=== PATIENT | female | born 2005 | race Caucasian/White ===

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

== ENCOUNTER 2023-09-10 12:46 | Emergency (ER) | payer MEDICAID, SELFPAY ==
[2023-09-10 12:47] VITALS: BP 122/82; PULSE 109; RESP 20; TEMP 36.4; O2SAT 100; BMI 20.4
--- NOTE | 2023-09-10 12:52 | EDS_ITS ---
HPI History of Present Illness Chief Complaint: Syncope [facility] Medical History (Updated 09/10/23 @ 15:[address] Justin Mccabe, DO) Asthma Effusion, right knee Patellar tendinitis, right knee Home Medications albuterol sulfate 90 mcg/actuation aerosol inhaler 90 mcg inhalation 06/06/21
--- NOTE | 2023-09-10 12:52 | EX.ED.DYSGE1 ---
HPI History of Present Illness Chief Complaint: Syncope [facility] Medical History (Updated 09/10/23 @ 15:[address] Justin Mccabe, DO) Asthma Effusion, right knee Patellar tendinitis, right knee Home Medications albuterol sulfate 90 mcg/actuation aerosol inhaler 90 mcg inhalation 06/06/21 [History Last Taken Unknown] ibuprofen 200 mg capsule 200 mg PO Q6H PRN 07/28/23 [History Last Taken Unknown] lisdexamfetamine 20 mg capsule (Vyvanse) mg PO 09/07/23 [History Last Taken Unknown] Allergy/AdvReac Type Severity Reaction Status Date / Time amoxicillin AdvReac Mild Rash Verified 09/10/23 12:47 Social History household members: family Smoking Status: Never smoker substance use type: does not use what type of physical activity do you participate in: running and weight training EXAM Physical Exam Const Vital Signs: 09/10/23 12:47 09/10/23 13:43 Temperature 97.6 F L Temperature Source Temporal Pulse Rate 109 H Respiratory Rate 20 H Blood Pressure 122/82 H Blood Pressure Mean 95 Pulse Ox 100 Oxygen Delivery Method Room Air MDM MDM MDM Narrative Medical decision making narrative: HISTORY OF PRESENT ILLNESS: 17-year-old female here with concern for syncope. Notes her heart was racing. States she had an episode prior to arrival where she thought she may have passed out however her teacher thought she was sleeping on her desk. Patient notes they are reviewing adrenal anatomy which reminded her of her grandfather who of adrenal cancer. She states he had very emotional felt lightheaded, warm, dizzy had chest tightness and then transient loss consciousness. She denies any tongue biting, bowel or bladder incontinence. No history of seizures. No family history of early cardiac before the age of 50. She has a history of ADHD for which she takes Vyvanse. Notes she recently increased her dose over last 2 days per her doctor's recommendations. States she does drink energy drinks. She denies any drug use. Patient denies sudden onset or thunderclap headache, denies maximal intensity within 1 minute, vomiting, neck pain, stiffness, changes in vision, fever, history malignancy, syncope, or seizures associated with headache. She denies any abdominal pain. Notes she is on her period currently. She does not believe she is . REVIEW OF SYSTEMS: Pertinent positives: Syncope, palpitations Pertinent negatives: Headache, abdominal pain, chest pain, SOB, Leg swelling PHYSICAL EXAM: Nursing triage notes reviewed, Vital signs reviewed Constitutional: please see mdm HENT: MMM Eyes: Pupils equal round and reactive to light, Extraocular muscles intact Neck: No stridor, no JVD, full neck ROM Lungs: Clear to auscultation, No wheezing or rales. No increased work of breathing, no conversational dyspnea, no accessory muscle use, no nasal flaring. No respiratory distress noted Heart: Regular rate and rhythm, No murmurs, No rubs and No gallops, 2+ distal pulses (radial, femoral, posterior tibial) in all extremities Abdomen: Soft, there is no tenderness, rigidity, rebound or guarding, no obvious peritoneal signs, no palpable pulsatile abdominal masses, no auscultated abdominal bruit : No CVAT Extremities: No edema Neuro: No focal neurological deficits, cranial nerves II through XII intact, 5/5 strength in all extremities. Intact sensation to light touch in all extremities, 2+ reflexes bilateral patella tendons. Normal gait. No ataxia. Skin: No rash or lesions noted MEDICAL DECISION MAKING: Chief Complaint: Syncope, palpitations External records reviewed: No recent ED visits, no recent cardiac catheterizations, stress test or echocardiograms noted in the chart Factors affecting care: Asthma Social determinants of health: n denies illicit drugs History obtained from others: The patient's grandmother Consults: [facility] Narrative: Patient was hemodynamically stable, afebrile, nontoxic-appearing. No focal neurologic deficits. Abdomen soft nontender. No focal cardiopulmonary normalities I considered the following differential diagnosis: Subarachnoid hemorrhage, PE, aortic dissection, arrhythmia, anemia, , vasovagal syncope I considered intracranial normality without this is less likely given the patient's lack of headache, no focal neurologic deficits. History is not consistent with seizure as there is no shaking, tongue biting, bowel or bladder incontinence and no prolonged postictal period. there is no abdominal pain or concern for to suggest ectopic or AAA at this time. The patient low risk Wells score and as such I have a low suspicion for pulmonary embolism. Did obtain labs and further images to assess signs of pneumothorax, pneumonia, anemia, electrolyte disturbances, ACS, Patient was treated 1 L normal saline. ALL IMAGES (IF OBTAINED) HAVE BEEN PERSONALLY REVIEWED AND INTERPRETED BY MYSELF. CBC without leukocytosis, severe anemia, no thrombocytopenia. BMP without evidence of significant electrolyte abnormalities, no anion gap, no acute kidney injury. High-sensitivity troponin is negative, no evidence of myocardial ischemia EKG with normal sinus rhythm, normal axis, normal intervals, no ST or T wave changes to suggest ischemia. No evidence of WPW, Brugada, ARVD. I have personally reviewed the patient's chest x-ray. Chest x-ray is unremarkable for pulmonary edema, pneumothorax, pneumonia or focal cardiopulmonary abnormality. The patient and/or family, caregivers express understanding. The patient and/or family, caregivers agrees with the plan. Shared decision making: I will have a discussion with the patient and or visitors regarding risk/benefits of further testing or admission. They will be made aware of of the risk/benefits inherent in this decision they will be given the opportunity to voice understanding. Total critical care time today provided was at least 0 minutes. This excludes separately billable procedures. Critical care time (if documented) is secondary to the patient having high probability of clinically significant/life threatening deterioration in the patient's condition which required my urgent intervention. Impression: 1. Vasovagal syncope Dispo: Discharge Lab Data Labs: Laboratory Results - last 24 hr 09/10/23 13:40 WBC 8.0 RBC 4.89 Hgb 14.5 Hct 43.2 MCV 88.3 MCH 29.7 MCHC 33.6 RDW Std Deviation 42.3 RDW Coeff of Araceli 13.0 Plt Count 327 MPV 9.3 Immature Gran % (Auto) 0.400 Neut % (Auto) 69.9 Lymph % (Auto) 21.1 [place] % (Auto) 7.3 Eos % (Auto) 0.9 Baso % (Auto) 0.4 Absolute Neuts (auto) 5.6 Absolute Lymphs (auto) 1.68 Nucleated RBC % 0 Sodium 138 Potassium 4.1 Chloride 106 Carbon Dioxide 25.0 Anion Gap 7 BUN 15 Creatinine 0.83 Estim Creat Clear Calc 114.29 Est GFR (MDRD) Af Amer 113 Est GFR (MDRD) Non-Af 93 BUN/Creatinine Ratio 18.0 Glucose 92 Calcium 9.8 Troponin I High Sens 4 Radiography Diagnostic Testing: Clinical Impression(s) from Imaging Studies Chest X-Ray 09/10/23 13:13 IMPRESSION: Normal x-ray examination of the chest. Electronically Signed: Gavin Escalante MD at 14:31 EST , Discharge Plan Triage Chief Complaint: Syncope ED Provider: Justin Mccabe Dx/Rx/DC Orders Clinical Impression: Vaso vagal episode Instructions: ED Fainting, Vagal Reaction Prescriptions: No Action albuterol sulfate 90 mcg/actuation HFA aerosol inhaler 90 mcg inhalation ibuprofen 200 mg capsule 200 mg PO Q6H PRN lisdexamfetamine [Vyvanse] 20 mg capsule PO Primary Care Provider: Miranda Redmond Referrals: Miranda Redmond MD [Primary Care Provider] - Activity Restrictions/Additional Instructions: Thank you for trusting us with your care today! Please take Tylenol (2 pills, 650 mg), ibuprofen (2 pills, 400 mg) every 6 hours as needed for pain and fever control. Please return to the emergency department if your symptoms change or worsen. Please follow with your primary care physician for further outpatient evaluation and management. Disposition Disposition: Home, Self Care
--- NOTE | 2023-09-10 13:13 | RAD_ITS ---
STUDY: X-RAY CHEST REASON FOR EXAM: Female, 17 years old. chest pain TECHNIQUE: Single AP portable view of the chest. COMPARISON: None. FINDINGS: EKG electrodes are seen. The lungs are clear and expanded. There is no demonstrated pleural abnormality. Normal size heart. Normal mediastinum and julieta. Normal visualized pulmonary arteries. Normal visualized aortic arch and descending thoracic aorta. Normal visualized thoracic spine. Normal visualized ribs, clavicles, and shoulders. There is no demonstrated abnormality of the visualized soft tissue structures of the upper abdomen. RAD/Chest 1 View (Portable) IMPRESSION: Normal x-ray examination of the chest. Electronically Signed: Gavin Escalante MD at 14:31 EST ,
--- NOTE | 2023-09-10 13:17 | ED.RN ---
NO OLD EKG
[2023-09-10] MEDS: 0.9% Normal Saline (1000mL) 1,000 ML 1000 ML IV (13:45)
[2023-09-10 13:51] LABS: Absolute Lymphocyte Count 1.68 X10^3/uL (0.83-4.51); Absolute Neutrophil Count 5.6 X10^3/uL (2.0-7.7); Basophil# 0.03 X10^3/uL; Basophil% 0.4 % (0-1); Eosinophil# 0.07 X10^3/uL; Eosinophils% 0.9 % (0-5); Hematocrit 43.2 % (37-47); Hemoglobin 14.5 g/dL (12.0-15.0); Lymphocyte # 1.68 X10^3/ul (0.83-4.51); Lymphocyte % 21.1 % (19-41); Mean Corp Hgb Conc 33.6 g/dL (32-36); Mean Corpuscular Hgb 29.7 pg (27.0-32.0); Mean Corpuscular Volume 88.3 fL (81-99); Mean Platelet Vol. 9.3 fl (6.2-12.0); Monocyte# 0.58 X10^3/uL; Monocyte% 7.3 % (0-10); NRBC Flagged by Analyzer 0 % (0-5); Neutrophil # 5.58 X10^3/uL (2.7-7.7); Neutrophil % 69.9 % (47-70); Platelet Count 327 K/mm3 (150-450); RBC Distribution Width SD 42.3 fl (35.1-43.9); Red Blood Count 4.89 M/mm3 (4.2-5.4)
[2023-09-10 14:10] LABS: Anion Gap 7 (5-15); BUN 15 mg/dL (7-18); Calcium,Total 9.8 mg/dL (8.5-10.1); Chloride 106 mmol/L (98-107); Creatinine, Serum 0.83 mg/dL (0.55-1.02); EST Glomerular Filtration Rate 93 mL/min (>60); Est Glom Filt Rate - Afr Amer 113 mL/min (>60); Estimated Creatinine Clearance 114.29 ml/min; Glucose 92 mg/dL (74-106); Potassium 4.1 mmol/L (3.5-5.1); Sodium Level 138 mmol/L (136-145); Troponin-I HS 4 pg/mL (3.0-54.0); Troponin-I HS (w/2H Reflex) 4 pg/mL (3.0-54.0)
[2023-09-10 15:47] LABS: Reflex Troponin-HS? (from REC) Y
[2023-09-10 16:00] VITALS: BP 131/68; PULSE 74; RESP 12; O2SAT 99
[2023-09-10 16:09] LABS: Internal QC Validated? YES +Cl - CLEAR BKGD; Pregnancy, Urine Negative Negative; Record Kit Lot#,Urine Preg 718086
[2023-09-10 16:15] LABS: Troponin-I HS 3 pg/mL (3.0-54.0)
== END 2023-09-10 16:28 | disposition home or self-care (01) ==
PROVIDERS: Emergency Provider Emergency Medicine; PCP Pediatrics; Visit Provider Emergency Medicine
DX: R55 Syncope and collapse (principal); F90.9 Attention-deficit hyperactivity disorder, unspecified type; Z79.899 Other long term (current) drug therapy
CPT/HCPCS: 71045; 80048; 81025; 84484; 85025; 93005; 96360; 96361; 99284; J7030; A4216

== ENCOUNTER 2023-11-16 20:15 | Emergency (ER) | payer MEDICAID, SELFPAY ==
[2023-11-16 20:16] VITALS: BP 126/77; PULSE 174; RESP 24; TEMP 36.6; O2SAT 100; BMI 20.9
--- NOTE | 2023-11-16 20:22 | EKG12_ITS ---
Test Reason : CHEST PRESSURE Blood Pressure : / mmHG Vent. Rate : 131 BPM Atrial Rate : 131 BPM P-R Int : 134 ms QRS Dur : 068 ms QT Int : 294 ms P-R-T Axes : 065 061 047 degrees QTc Int : 434 ms Sinus tachycardia Otherwise normal ECG Confirmed by Perico Rebolledo ([id number]), commercial production editor KATIE HORVATH ([id number]) on 11/17/2023 10:06:40 AM Referred By: CACHORRO Confirmed By:Perico Rebolledo
[2023-11-16 21:03] LABS: Absolute Lymphocyte Count 0.49 X10^3/uL (0.83-4.51); Absolute Neutrophil Count 4.5 X10^3/uL (2.0-7.7); Basophil# 0.01 X10^3/uL; Basophil% 0.2 % (0-1); Eosinophil# 0.12 X10^3/uL; Hematocrit 43.2 % (37-47); Hemoglobin 14.8 g/dL (12.0-15.0); Lymphocyte # 0.49 X10^3/ul (0.83-4.51); Mean Corp Hgb Conc 34.3 g/dL (32-36); Mean Corpuscular Volume 87.6 fL (81-99); Mean Platelet Vol. 9.4 fl (6.2-12.0); Monocyte# 0.99 X10^3/uL; Monocyte% 16.2 % (0-10); NRBC Flagged by Analyzer 0 % (0-5); Neutrophil # 4.48 X10^3/uL (2.7-7.7); Neutrophil % 73.4 % (47-70); POSITIVE DIFFERENTIAL YES; Platelet Count 276 K/mm3 (150-450); RBC Distribution Width CV 12.1 % (11.6-14.6); RBC Distribution Width SD 39.2 fl (35.1-43.9); Red Blood Count 4.93 M/mm3 (4.2-5.4); White Blood Count 6.1 K/mm3 (4.4-11.0)
--- NOTE | 2023-11-16 21:03 | RAD_ITS ---
INDICATION: chest pain EXAMINATION/TECHNIQUE: X-RAY - portable upright AP chest x-ray COMPARISON: 09/10/2023 FINDINGS: LINES/DEVICES: None. LUNGS: No consolidation, edema or effusion. No pneumothorax. MEDIASTINUM AND CARDIOVASCULAR STRUCTURES: Cardiac silhouette not enlarged. Central airways and mediastinal contour are unremarkable. BONES AND SOFT TISSUES: Unremarkable. RAD/Chest 1 View (Portable) IMPRESSION: No radiographic evidence of acute cardiopulmonary disease. Electronically Signed: Tyrel Farrell MD at 21:20 EDT ,
[2023-11-16] MEDS: 0.9% Normal Saline (1000mL) 1,000 ML 999 ML IV ×2 (21:14→21:59)
[2023-11-16 21:24] LABS: Anion Gap 11 (5-15); BUN 9 mg/dL (7-18); BUN/Creat Ratio 8.8 RATIO (10-20); Calcium,Total 9.7 mg/dL (8.5-10.1); Chloride 106 mmol/L (98-107); Creatinine, Serum 1.02 mg/dL (0.55-1.02); EST Glomerular Filtration Rate 74 mL/min (>60); Est Glom Filt Rate - Afr Amer 89 mL/min (>60); Estimated Creatinine Clearance 95.29 ml/min; Glucose 101 mg/dL (74-106); Potassium 3.6 mmol/L (3.5-5.1); Sodium Level 137 mmol/L (136-145); Troponin-I HS (w/2H Reflex) < 3 pg/mL (3.0-54.0)
--- NOTE | 2023-11-16 21:26 | ED.VIS.CHEST ---
HPI History of Present Illness Chief Complaint: Palpitations Narrative Narrative: 17-year-old female presenting with chest pain. She states this started about 11 AM this morning. It has been constant but waxes and wanes in severity. She describes it as a pressure-like pain that radiates to her back. She states it is just left of the midline of the sternum. Denies fever, chills. Denies cough. She has mild shortness of breath. Patient states she has a history of anxiety but does not feel like she is anxious. Patient is currently on omeprazole for GERD. She is on Effexor which is new over the last week and she has been on Vyvanse for a long time. Patient denies cardiac history. She states he has a history of asthma but does not feel as if she is wheezing. She states her heart rate typically runs between 70 and 120 bpm. No history of DVT/PE but does have Nexplanon for control. PE Risk Factors: Negative for Recent Travel/Surgery, Recent Immobilization, Prior DVT or PE or Cancer [facility] Medical History (Updated 09/18/23 @ 00:12 by Cordell Hazel) Asthma Effusion, right knee Patellar tendinitis, right knee Home Medications albuterol sulfate 90 mcg/actuation aerosol inhaler 90 mcg inhalation 06/06/21 [History Last Taken Unknown] ibuprofen 200 mg capsule 200 mg PO Q6H PRN 07/28/23 [History Last Taken Unknown] lisdexamfetamine 20 mg capsule (Vyvanse) mg PO 09/07/23 [History Last Taken Unknown] Allergy/AdvReac Type Severity Reaction Status Date / Time amoxicillin AdvReac Mild Rash Verified 11/16/23 20:16 Social History household members: family Smoking Status: Never smoker substance use type: does not use what type of physical activity do you participate in: running and weight training EXAM Physical Exam Const Vital Signs: 11/16/23 20:16 11/16/23 21:44 11/16/23 21:44 Temperature 97.8 F Temperature Source Temporal Pulse Rate 174 H 99 Respiratory Rate 24 H 18 Respiratory Effort Blood Pressure 126/77 H 113/63 Blood Pressure Mean 93 79 Pulse Ox 100 100 100 Oxygen Delivery Method Room Air Room Air 11/16/23 22:02 11/16/23 22:03 11/16/23 23:05 Temperature 98.2 F Temperature Source Oral Pulse Rate 98 113 H Respiratory Rate 15 16 Respiratory Effort Normal Non-Labored Blood Pressure 107/70 99/51 L Blood Pressure Mean 82 67 Pulse Ox 99 98 Oxygen Delivery Method Room Air Room Air 11/16/23 23:05 Temperature 98.2 F Temperature Source Pulse Rate 113 H Respiratory Rate 16 Respiratory Effort Blood Pressure 99/51 L Blood Pressure Mean 67 Pulse Ox 99 Oxygen Delivery Method Positive well nourished Constitutional Narrative: Anxious appearing General Appearance ED: NAD HEENT Reports moist mucous membranes normocephalic and atraumatic Eyes PERRL Chest Wall inspection of chest normal Resp normal respiratory effort and clear to auscultation bilaterally Auscultation: Negative for rales, rhonchi or wheezes Cardio regular rhythm Rate: tachycardic GI normal to inspection, nondistended, normoactive bowel sounds Neuro oriented x3 and CN's II-XII intact bilaterally Sensorium / Orientation: awake and alert Motor Exam: strength 5/5 throughout Psych mental status grossly normal Mood & Affect: anxious MDM MDM MDM Narrative Medical decision making narrative: Patient presenting with chest pain and tachycardia. Chest pain started at 11 AM. She reports that her heart started to race at about 4 PM. Patient with no history of DVT/PE. She only has risk factors secondary to Nexplanon for control. No history of cardiac disease. Differential includes but is not limited to ACS, PE, aortic dissection, pneumonia, pneumothorax, muscle strain, costochondritis, dehydration, anemia, electrolyte maladies, anxiety. CBC will be obtained to assess white blood cell count, hemoglobin, platelets. BMP to assess renal function, electrolytes, glucose, anion gap. High-sensitivity troponin EKG to assess for ischemia/dysrhythmia. Chest x-ray to rule out pneumonia. IV line was established on arrival. 2 L of normal saline were given. Patient states that she wants something for pain but does not want narcotics she was given Toradol and Zofran for nausea. EKG on my interpretation shows a sinus tachycardia at 131 bpm without sign of ischemic change. Chest x-ray my interpretation shows no acute cardiopulmonary process. Radiologist interprets this and agrees. High-sensitivity troponin is less than 3. This is after greater than 10 hours of pain so I do not believe she did delta troponin. Awaiting D-dimer. D-dimer returned negative. Repeat evaluation her heart rate is now in the 70s. Blood pressure 99/51. Respirate 16, 99% on room air. She feels much better. Patient only treated with Zofran and Toradol. We discussed follow-up and I recommended follow-up with cardiology. She may in fact need a Holter monitor. I feel she stable for discharge. All questions were answered. Impression: 1. Chest pain 2. Tachycardia Lab Data Attestation: I reviewed the patient's lab results. Labs: Laboratory Results - last 24 hr 11/16/23 20:45 WBC 6.1 RBC 4.93 Hgb 14.8 Hct 43.2 MCV 87.6 MCH 30.0 MCHC 34.3 RDW Std Deviation 39.2 RDW Coeff of Araceli 12.1 Plt Count 276 MPV 9.4 Immature Gran % (Auto) 0.200 Neut % (Auto) 73.4 H Lymph % (Auto) 8.0 L [place] % (Auto) 16.2 H Eos % (Auto) 2.0 Baso % (Auto) 0.2 Absolute Neuts (auto) 4.5 Absolute Lymphs (auto) 0.49 L Nucleated RBC % 0 D-Dimer Quant (PE/DVT) 0.41 Sodium 137 Potassium 3.6 Chloride 106 Carbon Dioxide 20.0 L Anion Gap 11 BUN 9 Creatinine 1.02 Estim Creat Clear Calc 95.29 Est GFR (MDRD) Af Amer 89 Est GFR (MDRD) Non-Af 74 BUN/Creatinine Ratio 8.8 L Glucose 101 Calcium 9.7 Troponin I High Sens < 3 L Radiography Diagnostic Testing: Clinical Impression(s) from Imaging Studies Chest X-Ray 11/16/23 21:03 IMPRESSION: No radiographic evidence of acute cardiopulmonary disease. Electronically Signed: Tyrel Farrell MD at 21:20 EDT Reading Location ID and State: [facility] / [place] Tel , Service support , Discharge Plan Triage Chief Complaint: Palpitations Other Complaint: Numb/Ting ED Provider: Case Priest Dx/Rx/DC Orders Instructions: ED Palpitations, ED Tachycardia: PAT Prescriptions: No Action albuterol sulfate 90 mcg/actuation HFA aerosol inhaler 90 mcg inhalation ibuprofen 200 mg capsule 200 mg PO Q6H PRN lisdexamfetamine [Vyvanse] 20 mg capsule PO Primary Care Provider: Miranda Redmond Referrals: Perico Rebolledo MD [Med Staff - Active Staff] - As soon as possible Miranda Redmond MD [Primary Care Provider] - Disposition Disposition: Home, Self Care
[2023-11-16 21:40] LABS: D-Dimer Quantitative (DVT/PE) 0.41 FEU/ug/m (0.27-0.49)
[2023-11-16 21:44] VITALS: BP 113/63; PULSE 99; RESP 18; O2SAT 100
[2023-11-16] MEDS: Ondansetron 4 MG/2 ML Vial IV (22:00)
[2023-11-16] MEDS: Ketorolac 15 MG/ML Vial IV (22:00)
[2023-11-16 22:02] VITALS: BP 107/70; PULSE 98; RESP 15; TEMP 36.8; O2SAT 99
[2023-11-16 22:57] LABS: Reflex Troponin-HS? (from REC) Y
[2023-11-16 23:05] VITALS: BP 99/51; PULSE 113; RESP 16; TEMP 36.8; O2SAT 98; O2SAT 99
== END 2023-11-16 23:25 | disposition home or self-care (01) ==
PROVIDERS: Emergency Provider Student in an Organized Health Care Education/Training Program; PCP Pediatrics; Visit Provider Student in an Organized Health Care Education/Training Program
DX: R07.9 Chest pain, unspecified (principal); R00.0 Tachycardia, unspecified; K21.9 Gastro-esophageal reflux disease without esophagitis; Z79.899 Other long term (current) drug therapy; F41.9 Anxiety disorder, unspecified; R11.0 Nausea
CPT/HCPCS: 71045; 80048; 84484; 85025; 85379; 93005; 96361; 96374; 96375; 99285; J7030; J2405

== ENCOUNTER 2024-02-13 21:13 | Emergency (ER) | payer SELFPAY ==
[2024-02-13 21:14] VITALS: BP 130/82; PULSE 73; RESP 16; TEMP 36.1; O2SAT 100; BMI 22.5
--- NOTE | 2024-02-13 21:32 | EKG12_ITS ---
Test Reason : CP Blood Pressure : / mmHG Vent. Rate : 067 BPM Atrial Rate : 067 BPM P-R Int : 120 ms QRS Dur : 078 ms QT Int : 374 ms P-R-T Axes : 067 059 037 degrees QTc Int : 395 ms Normal sinus rhythm Normal ECG Confirmed by LAUREN VINES MD ([id number]), material expeditor OLEG KAUFMAN ([id number]) on 02/15/2024 8:06:12 AM Referred By: LORENZO Confirmed By:LAUREN VINES MD
--- NOTE | 2024-02-13 21:37 | EDS_ITS ---
HPI <JENNIE Baugh - Last Filed: 02/13/24 21:52> History of Present Illness Chief Complaint: Chest Pain Narrative Narrative: Patient is a 18-year-old female with history of anxiety, history of tachycardia on metoprolol, POTS syndrome who presents to the emergency department for chest pressure. Patient she was working today, around 8 AM she noticed some pressure in the midsternal of her chest. Throughout the day, she states the pain was never severe however it did affect her. She was told that she did not look well during her job. They did do an EKG because she worked upstairs in the TCU unit, she was concerned about her T waves and she is here for evaluation. Her biggest concern is she is having a heart attack. She denies any sweating, denies any recent travel, denies any history of blood clots to the legs or lungs. [facility] <JENNIE Baugh - Last Filed: 02/13/24 21:52> [facility] Medical History (Updated 02/13/24 @ 21:51 by JENNIE Baugh) POTS (postural orthostatic tachycardia syndrome) Patellar tendinitis, right knee Effusion, right knee Asthma Home Medications ?Medication ?Instructions ?Recorded ?Last Taken ?Type albuterol sulfate 90 mcg/actuation 90 mcg inhalation 06/06/21 Unknown History aerosol inhaler lisdexamfetamine 20 mg capsule 30 mg PO DAILY 09/07/23 Unknown History (Angi) metoprolol succinate 25 mg 25 mg PO QPM 02/13/24 Unknown History tablet,extended release 24 hr Allergy/AdvReac Type Severity Reaction Status Date / Time amoxicillin AdvReac Mild Rash Verified 02/13/24 21:17 Social History household members: family Smoking Status: Never smoker substance use type: does not use what type of physical activity do you participate in: running and weight training ROS <JENNIE Baugh - Last Filed: 02/13/24 21:52> ROS ED ROS Narrative Constitutional: Negative for fever, chills, weight loss, weakness Eyes: Negative for vision loss, vision change, double vision ENT: Negative for any sore throat, ear pain, congestion Cardiovascular: Negative for any palpitations. Positive for chest pressure, tightness Respiratory: Negative for any cough, sputum production, hemoptysis, dyspnea, dyspnea on exertion, orthopnea Gastrointestinal: Negative for any abdominal pain, nausea, vomiting, diarrhea, constipation, blood in stool, blood in vomit : Negative for any urinary frequency, dysuria, retention, blood in urine Muscle skeletal: Negative for any neck pain, back pain Neurological: Negative for any headache, syncope, dizziness Skin: Negative for any rashes, itching, abrasions, lacerations Psychiatric: Negative for any depression, anxiety, stress, suicidal ideation, homicidal ideation Hematologic: Negative for any excessive bruising, easy bleeding EXAM <Mychal Zavala PHYSICIST [facility] - Last Filed: 02/13/24 21:52> Physical Exam Narrative Exam Narrative: Vital signs reviewed. HEET: Head normocephalic atraumatic, TMs clear bilaterally. Posterior pharynx is clear, moist mucous membranes. Nares clear bilaterally. Neck: Supple with no lymphadenopathy or tenderness. No signs of meningismus. Cardiac: Regular rate and rhythm no murmurs gallops or rubs, equal peripheral pulses bilaterally. Respiratory: Lungs clear to auscultation bilaterally. No chest tenderness. Abdomen: Soft, nontender, nondistended. No abdominal bruit or pulsatile masses. No hepatosplenomegaly Extremities: No peripheral edema, no signs of gross trauma or deformity. Active full range of motion of all extremities. Neuro: Cranial nerves II through XII intact, no focal neurological deficits. Skin: Clean dry and intact with no rash, purpura, petechiae, vesicles or pustules. Backs/flank: No CVA tenderness, no midline spinal tenderness, no deformity. Psych: Normal mood and affect. No SI, HI or acute psychosis. Const Vital Signs: 02/13/24 21:14 02/13/24 21:28 02/13/24 21:38 Temperature 96.9 F L Temperature Source Temporal Pulse Rate 73 Respiratory Rate 16 Respiratory Effort Normal Blood Pressure 130/82 H Blood Pressure Mean 98 Pulse Ox 100 Oxygen Delivery Method Room Air Room Air Positive well nourished and well developed General Appearance ED: well developed <Dr. Elier Franklin, DO - Last Filed: 02/13/24 22:15> Physical Exam Const Vital Signs: 02/13/24 21:14 02/13/24 21:28 02/13/24 21:38 Temperature 96.9 F L Temperature Source Temporal Pulse Rate 73 Respiratory Rate 16 Respiratory Effort Normal Blood Pressure 130/82 H Blood Pressure Mean 98 Pulse Ox 100 Oxygen Delivery Method Room Air Room Air [facility] <Mychal DangJENNIE kruger - Last Filed: 02/13/24 21:52> [facility] Lab Data Labs: Laboratory Results - last 24 hr 02/13/24 21:30 WBC 8.0 RBC 4.26 Hgb 12.9 Hct 37.4 MCV 87.8 MCH 30.3 MCHC 34.5 RDW Std Deviation 39.7 RDW Coeff of Araceli 12.3 Plt Count 282 MPV 9.4 Immature Gran % (Auto) 0.300 Neut % (Auto) 56.9 Lymph % (Auto) 28.1 [place] % (Auto) 8.1 Eos % (Auto) 6.2 H Baso % (Auto) 0.4 Absolute Neuts (auto) 4.5 Absolute Lymphs (auto) 2.23 Nucleated RBC % 0 Sodium 139 Potassium 3.7 Chloride 108 H Carbon Dioxide 25.0 Anion Gap 6 BUN 12 Creatinine 0.88 Estim Creat Clear Calc 110.27 Est GFR (MDRD) Af Amer 105 Est GFR (MDRD) Non-Af 86 BUN/Creatinine Ratio 13.6 Glucose 101 Calcium 9.4 Troponin I High Sens < 3 L TSH 1.29 EKG Normal sinus rhythm: Attestation: I personally reviewed and interpreted this EKG as follows: Comments: Normal sinus rhythm, rate of 67 bpm, FL 120 ms, QRS duration 78 ms, no acute ST elevation, no acute infarct noted. Treatment and Re-Evaluation :: Differential diagnosis includes however is not limited to: Anxiety, chest pain unknown etiology, ACS, [place], PE Patient appears to be in no obvious distress, vital signs are stable, patient is nontoxic-appearing. Patient presenting to the emergency department for chest pressure since 8 AM this morning. Patient states he is most concerned that something is wrong with her heart. Patient's EKG was normal, no evidence of any ACS or NJ, patient's PERC negative. Patient looks generally well. Patient will receive basic labs as well as a troponin, two-view chest x-ray. All radiologic examinations were read, reviewed by the emergency department attending. From these reads, a plan of care will be put in place. Patient received IV fluids. I will also order TSH. On reevaluation, the patient was in no distress. Patient's laboratory values were grossly normal. At this time, I do not believe there is any evidence of any cardiopulmonary pathology. Patient will continue to follow-up with her vest backer from [facility]. She instructed to maintain hydration. All questions were answered, she was given return precautions. Patient stable for discharge. <Dr. Elier Franklin, DO - Last Filed: 02/13/24 22:15> [facility] Narrative Medical decision making narrative: I have personally performed a face to face assessment of the patient and have reviewed the ABHISHEK Note. I performed a substantive portion of the visit including all aspects of the following. My [place] findings include: History: Patient presents with chest pain that began approximately 12 to 13 hours prior to arrival. Patient states it has been intermittent throughout the day. Patient states it came on gradually. Patient states it is over the substernal area and radiates to her left shoulder. Patient states it is worse with certain movements. Patient admits to some shortness of breath and diaphoresis with it. Patient admits to some lightheadedness and palpitations. Patient denies any cough or fever. Patient denies any nausea or vomiting. Patient has a history of POTS and unsustained V. tach. Exam: Vital signs are stable. Patient is afebrile. Patient is in no acute distress. Oral mucosa is pink and moist. Neck is supple. Trachea is midline. There is no JVD. Heart was regular rate and rhythm. Lungs are clear and equal bilaterally. There is good respiratory effort noted. Abdomen is soft. Bowel sounds are normal. There is no tenderness. Cranial nerves II through XII are intact. There are no focal motor or sensory deficits noted. Medical Decision Making: Differential diagnosis includes cardiac dysrhythmia, cardiac ischemia, electrolyte abnormality, pneumonia, pneumothorax, hypothyroidism, hyperthyroidism, and anxiety. EKG will be obtained to assess for cardiac dysrhythmia and cardiac ischemia. Chest x-ray will be obtained to assess for pneumonia and pneumothorax. CBC will be obtained to assess for leukocytosis and anemia. Basic metabolic profile will be obtained to assess for electrolyte abnormality and renal function. High-sensitivity troponin will be obtained to assess for cardiac ischemia. TSH will be obtained to assess for hypothyroidism and hyperthyroidism. Patient was given IV fluids. EKG was obtained. On my independent interpretation, shows normal sinus rhythm with a rate of 67. FL interval, QRS interval, and QTc intervals are within normal limits. [place] is normal. There are no acute ST or T wave changes noted. PA and lateral chest x-ray was obtained. There are 2 views. On my independent interpretation, lung healy are clear. There is normal cardiac silhouette. Bony thorax is normal. There is no acute process noted. Radiologist also interpreted the x-ray and agrees. CBC was reviewed and was within normal limits. Basic metabolic profile was reviewed and was within normal limits. High-sensitivity troponin was reviewed and was normal at less than 3. TSH was reviewed and was normal at 1.29. Patient was advised of her findings. Patient has a HEART score of 0. Patient was advised that this is low risk for acute cardiac event. Patient was instructed to follow-up with her primary care physician in 5 to 7 days. Patient understood and was agreeable with the plan. All questions were answered. Lab Data Labs: Laboratory Results - last 24 hr 02/13/24 21:30 WBC 8.0 RBC 4.26 Hgb 12.9 Hct 37.4 MCV 87.8 MCH 30.3 MCHC 34.5 RDW Std Deviation 39.7 RDW Coeff of Araceli 12.3 Plt Count 282 MPV 9.4 Immature Gran % (Auto) 0.300 Neut % (Auto) 56.9 Lymph % (Auto) 28.1 [place] % (Auto) 8.1 Eos % (Auto) 6.2 H Baso % (Auto) 0.4 Absolute Neuts (auto) 4.5 Absolute Lymphs (auto) 2.23 Nucleated RBC % 0 Sodium 139 Potassium 3.7 Chloride 108 H Carbon Dioxide 25.0 Anion Gap 6 BUN 12 Creatinine 0.88 Estim Creat Clear Calc 110.27 Est GFR (MDRD) Af Amer 105 Est GFR (MDRD) Non-Af 86 BUN/Creatinine Ratio 13.6 Glucose 101 Calcium 9.4 Troponin I High Sens < 3 L TSH 1.29 Discharge Plan Triage Chief Complaint: Chest Pain ED Midlevel Provider: Mychal Zavala ED Provider: Elier Franklin Dx/Rx/DC Orders Clinical Impression: Chest pressure, POTS (postural orthostatic tachycardia syndrome) Instructions: ED Chest Pain, Noncardiac, ED Chest Pain, Uncertain Cause Prescriptions: No Action albuterol sulfate 90 mcg/actuation HFA aerosol inhaler 90 mcg inhalation lisdexamfetamine [Vyvanse] 20 mg capsule 30 mg PO DAILY metoprolol succinate 25 mg tablet extended release 24 hr 25 mg PO QPM Primary Care Provider: Miranda Redmond Referrals: Pily Anderson NP-C [Non-Staff] - Activity Restrictions/Additional Instructions: Ensure that you take your medications as prescribed. You have a negative chest pain workup today. Print Language: Romanian Disposition Disposition: Home, Self Care
[2024-02-13] MEDS: 0.9% Normal Saline (1000mL) 1,000 ML 999 ML IV (21:38)
[2024-02-13 21:46] LABS: Absolute Lymphocyte Count 2.23 X10^3/uL (0.83-4.51); Absolute Neutrophil Count 4.5 X10^3/uL (2.0-7.7); Basophil# 0.03 X10^3/uL; Basophil% 0.4 % (0-1); Eosinophil# 0.49 X10^3/uL; Eosinophils% 6.2 % (0-5); Hematocrit 37.4 % (37-47); Hemoglobin 12.9 g/dL (12.0-15.0); Lymphocyte # 2.23 X10^3/ul (0.83-4.51); Lymphocyte % 28.1 % (19-41); Mean Corp Hgb Conc 34.5 g/dL (32-36); Mean Corpuscular Hgb 30.3 pg (27.0-32.0); Mean Corpuscular Volume 87.8 fL (81-99); Mean Platelet Vol. 9.4 fl (6.2-12.0); Monocyte# 0.64 X10^3/uL; Monocyte% 8.1 % (0-10); NRBC Flagged by Analyzer 0 % (0-5); Neutrophil # 4.54 X10^3/uL (2.7-7.7); Neutrophil % 56.9 % (47-70); Platelet Count 282 K/mm3 (150-450); RBC Distribution Width CV 12.3 % (11.6-14.6); RBC Distribution Width SD 39.7 fl (35.1-43.9); Red Blood Count 4.26 M/mm3 (4.2-5.4)
--- NOTE | 2024-02-13 21:50 | RAD_ITS ---
INDICATION: chest pain EXAMINATION/TECHNIQUE: X-RAY - XR Chest 2 Views COMPARISON: 11/16/2023 FINDINGS: LINES/DEVICES: None. LUNGS: No consolidation. No pneumothorax. MEDIASTINUM: Unremarkable. CARDIAC SILHOUETTE: Not enlarged. BONES AND SOFT TISSUES: No acute abnormalities. RAD/Chest PA and Lateral IMPRESSION: No evidence of active intrathoracic disease. Electronically Signed: Regi Ramon MD at 22:18 EDT ,
[2024-02-13 22:10] LABS: Anion Gap 6 (5-15); BUN 12 mg/dL (7-18); BUN/Creat Ratio 13.6 RATIO (10-20); Calcium,Total 9.4 mg/dL (8.5-10.1); Chloride 108 mmol/L (98-107); Creatinine, Serum 0.88 mg/dL (0.55-1.02); EST Glomerular Filtration Rate 86 mL/min (>60); Est Glom Filt Rate - Afr Amer 105 mL/min (>60); Estimated Creatinine Clearance 110.27 ml/min; Glucose 101 mg/dL (74-106); Potassium 3.7 mmol/L (3.5-5.1); Sodium Level 139 mmol/L (136-145); Thyroid Stim Hormone (TSH) 1.29 uIU/mL (0.358-3.74); Troponin-I HS < 3 pg/mL (3.0-54.0)
[2024-02-13 22:14] VITALS: BP 104/67; PULSE 58; RESP 14; O2SAT 100
[2024-02-13 22:23] VITALS: BP 104/67; PULSE 57; RESP 20; TEMP 36.8; O2SAT 99
== END 2024-02-13 22:24 | disposition home or self-care (01) ==
LOC: ED 22:11
PROVIDERS: Nurse Practitioner; Emergency Provider Emergency Medicine; PCP Pediatrics; Visit Provider Emergency Medicine
DX: R07.89 Other chest pain (principal); G90.A Postural orthostatic tachycardia syndrome [POTS]; R00.0 Tachycardia, unspecified; Z79.899 Other long term (current) drug therapy
CPT/HCPCS: 71046; 80048; 84443; 84484; 85025; 93005; 96360; 99283

== ENCOUNTER 2024-05-07 19:50 | Emergency (ER) | payer MEDICAID, SELFPAY ==
[2024-05-07 19:51] VITALS: BP 124/78; PULSE 91; RESP 16; TEMP 36.6; O2SAT 98; BMI 23.2
--- NOTE | 2024-05-07 20:14 | EX.ED.DYSGE1 ---
HPI History of Present Illness Chief Complaint: Cold Sx Detail of Chief Complaint: Nasal congestion x 2 days and epistaxis Informant: patient Onset/Context/Timing Onset: Days Context: Sudden Onset Timing: Continuous and Waxes and wanes Quality: Facial discomfort, nasal congestion, epistaxis left Location: Upper respiratory Current Severity: Mild Maximum Severity: Moderate Worsened by: . Nothing Relieved by: Nothing Associated Symptoms Associated Symptoms: Upper respiratory Narrative Narrative: Patient is a 18-year-old female. She has a history of POTS. She is presently on metoprolol 25 mg daily. She presents with nasal congestion that started 2 days ago. She had epistaxis from the left naris. She denies headache. She denies visual symptoms. She endorses change in voice. She denies cough or shortness of breath. She denies nausea, vomiting or diarrhea. She denies rash. Denies myalgias arthralgias. Prior similar symptoms: Yes Recent Illness/Hospitalization: No PFSH PFSH Medical History POTS (postural orthostatic tachycardia syndrome) Patellar tendinitis, right knee Effusion, right knee Asthma Home Medications ?Medication ?Instructions ?Recorded ?Last Taken ?Type albuterol sulfate 90 mcg/actuation 90 mcg inhalation 06/06/21 Unknown History aerosol inhaler lisdexamfetamine 20 mg capsule 30 mg PO DAILY 09/07/23 Unknown History (Angi) metoprolol succinate 25 mg 25 mg PO QPM 02/13/24 Unknown History tablet,extended release 24 hr Allergy/AdvReac Type Severity Reaction Status Date / Time amoxicillin AdvReac Mild Rash Verified 05/07/24 19:52 Social History household members: family Smoking Status: Never smoker substance use type: does not use what type of physical activity do you participate in: running and weight training ROS ROS ED Constitutional Constitutional ED: Denies chills, fever(s), subjective or sweats Eyes Eyes: Denies blurry vision or change in vision ENT ENT ED: Reports rhinorrhea; Denies ear pain or sore throat Cardiovascular Cardiovascular: Denies chest pain or palpitations Respiratory/Chest Respiratory/Chest: Denies cough, dyspnea or dyspnea on exertion Gastrointestinal Gastrointestinal: Denies nausea or vomiting Musculoskeletal Musculoskeletal: Denies arthralgias or myalgias Integumentary Denies rash Neurologic Neurologic: Denies headache(s) Hematologic/Lymphatic Hematologic/Lymphatic: Reports systems reviewed and no addt'l complaints, except as documented EXAM Physical Exam Const Vital Signs: 05/07/24 19:51 Temperature 97.8 F Temperature Source Temporal Pulse Rate 91 Respiratory Rate 16 Blood Pressure 124/78 H Blood Pressure Mean 93 Pulse Ox 98 Oxygen Delivery Method Room Air Positive well nourished and well developed General Appearance ED: well developed; Negative for cyanotic, diaphoretic, NAD or pallor HEENT Reports moist mucous membranes HEENT Narrative: There is no tenderness over the frontal, ethmoid or maxillary sinuses. Patient has cobblestoning of the nasal mucosa with irritation predominately on the left. There is slight clear drainage noted. Posterior pharynx is normal. Eyes PERRL and EOMs intact bilaterally General Eye ED: Negative for pale conjunctiva or scleral icterus Neck no lymphadenopathy, supple and no JVD Resp normal respiratory effort Cardio regular rate and regular rhythm Neuro oriented x3 and CN's II-XII intact bilaterally Sensorium / Orientation: alert Psych mental status grossly normal Skin no rashes or lesions noted, no wounds and skin turgor normal General Skin Exam: elasticity normal; Negative for jaundice or pallor MDM MDM MDM Narrative Medical decision making narrative: Patient has viral upper respiratory versus allergic rhinitis. Epistaxis most likely due to nasal irritation. Patient was informed she does not have a sinus infection since he only had symptoms for 2 days. This is most likely a viral illness since her nasal mucosae is not healy and boggy. The nasal mucosa is inflamed especially over the left septal region. Discharge Plan Triage Chief Complaint: Cold Sx ED Provider: Ismael Landa Dx/Rx/DC Orders Clinical Impression: Mild nasal congestion, Acute anterior epistaxis, Postural orthostatic tachycardia syndrome [POTS] Instructions: ED URI, Viral, No Abx (Adult) Prescriptions: No Action albuterol sulfate 90 mcg/actuation HFA aerosol inhaler 90 mcg inhalation lisdexamfetamine [Vyvanse] 20 mg capsule 30 mg PO DAILY metoprolol succinate 25 mg tablet extended release 24 hr 25 mg PO QPM Primary Care Provider: Miranda Redmond Referrals: Miranda Rdemond MD [Primary Care Provider] - 1 Week if not improving Activity Restrictions/Additional Instructions: 1. Use saline nasal spray as instructed on the bile 2. Would be beneficial to apply Vaseline ointment to the inside of your nose in the morning and at night. Also would be of benefit to use a humidifier Print Language: Turkish Disposition Disposition: Home, Self Care
== END 2024-05-07 20:31 | disposition home or self-care (01) ==
LOC: ED 20:26
PROVIDERS: Emergency Provider Emergency Medicine; PCP Pediatrics; Visit Provider Emergency Medicine
DX: R09.81 Nasal congestion (principal); R04.0 Epistaxis; G90.A Postural orthostatic tachycardia syndrome [POTS]; Z79.899 Other long term (current) drug therapy
CPT/HCPCS: 99282

== ENCOUNTER 2024-08-08 06:24 | Emergency (ER) | payer MEDICAID, SELFPAY ==
[2024-08-08 06:25] VITALS: BP 116/76; PULSE 111; RESP 16; TEMP 36.9; O2SAT 98; BMI 23.0
--- NOTE | 2024-08-08 06:41 | EKG12_ITS ---
Test Reason : SYNCOPE Blood Pressure : */* mmHG Vent. Rate : 106 BPM Atrial Rate : 106 BPM P-R Int : 126 ms QRS Dur : 76 ms QT Int : 328 ms P-R-T Axes : 70 47 32 degrees QTcB Int : 435 ms Sinus tachycardia Otherwise normal ECG Confirmed by MOHINDER GARCIA, LAUREN ([id number]), editorial specialist KATIE HORVATH ([id number]) on 08/11/2024 2:20:34 PM Referred By: Confirmed By: LAUREN VINES MD
[2024-08-08] MEDS: Ondansetron 4 MG/2 ML Vial IV (06:47)
[2024-08-08] MEDS: Famotidine 200 MG/20 ML MDV 20 MG in 0.9% Normal Saline (Pres. free 8 ML 300 MG IV (06:47)
[2024-08-08] MEDS: 0.9% Normal Saline (1000mL) 1,000 ML 1000 ML IV (06:47)
[2024-08-08 06:51] LABS: Basophil# 0.03 X10^3/uL; Basophil% 0.2 % (0-1); Eosinophil# 0.06 X10^3/uL; Eosinophils% 0.4 % (0-5); Hematocrit 41.1 % (37-47); Hemoglobin 14.2 g/dL (12.0-15.0); Lymphocyte % 2.1 % (19-41); Mean Corp Hgb Conc 34.5 g/dL (32-36); Mean Corpuscular Hgb 30.1 pg (27.0-32.0); Mean Corpuscular Volume 87.1 fL (81-99); Mean Platelet Vol. 9.3 fl (6.2-12.0); Monocyte# 0.83 X10^3/uL; Monocyte% 5.8 % (0-10); NRBC Flagged by Analyzer 0 % (0-5); Neutrophil # 12.99 X10^3/uL (2.7-7.7); Neutrophil % 90.8 % (47-70); POSITIVE DIFFERENTIAL YES; Platelet Count 240 K/mm3 (150-450); RBC Distribution Width CV 12.4 % (11.6-14.6); RBC Distribution Width SD 39.2 fl (35.1-43.9); Red Blood Count 4.72 M/mm3 (4.2-5.4); White Blood Count 14.3 K/mm3 (4.4-11.0)
--- NOTE | 2024-08-08 06:56 | EX.ED.DYSGE1 ---
HPI History of Present Illness Chief Complaint: Nausea/Vomiting/Diarrhea Informant: patient and parent Narrative Narrative: Patient presents with mother vomiting since 7 PM. No hematemesis. 1 diarrhea at 2 AM. During vomiting has had syncopal episodes. No chest pains. History of POTS syndrome. History of nonsustained V. tach on metoprolol followed by [facility] cardiology. Other family members also ate the same food around 7 PM abdominal planes. No other family sick. Last menstrual period 2 to 3 weeks ago. No urinary symptoms. Denies any abdominal surgery. Reports mid abdominal pain due to vomiting. [facility] Medical History POTS (postural orthostatic tachycardia syndrome) Patellar tendinitis, right knee Effusion, right knee Asthma Home Medications ?Medication ?Instructions ?Recorded ?Last Taken ?Type albuterol sulfate 90 mcg/actuation 90 mcg inhalation Q4H PRN 06/06/21 Unknown History aerosol inhaler lisdexamfetamine 20 mg capsule 20 mg PO DAILY 09/07/23 Unknown History (Vyvanse) metoprolol succinate 25 mg 25 mg PO QPM 02/13/24 Unknown History tablet,extended release 24 hr famotidine 20 mg tablet 20 mg PO BID #20 TABLETS 08/08/24 Unknown Rx ondansetron 4 mg disintegrating 4 mg PO Q8H PRN PRN Nausea #10 tabs 08/08/24 Unknown Rx tablet Allergy/AdvReac Type Severity Reaction Status Date / Time amoxicillin AdvReac Mild Rash Verified 08/08/24 06:24 Social History household members: family Smoking Status: Never smoker substance use type: does not use what type of physical activity do you participate in: running and weight training ROS ROS ED Constitutional Constitutional ED: Denies chills, fever(s) or sweats ENT ENT ED: Denies sore throat Cardiovascular Cardiovascular: Denies chest pain, leg edema, palpitations or racing heartbeat Respiratory/Chest Respiratory/Chest: Denies cough, dyspnea or dyspnea on exertion Gastrointestinal Gastrointestinal: Reports abdominal pain, diarrhea, nausea and vomiting Genitourinary Genitourinary ED: Denies dysuria, hematuria or urinary frequency Musculoskeletal Musculoskeletal: Denies back pain, extremity pain or neck pain Integumentary Denies rash or wounds Neurologic Neurologic: Denies headache(s), paresthesias or weakness EXAM Physical Exam Const Vital Signs: 08/08/24 06:25 Temperature 98.5 F Temperature Source Oral Pulse Rate 111 H Respiratory Rate 16 Blood Pressure 116/76 Blood Pressure Mean 89 Pulse Ox 98 Oxygen Delivery Method Room Air Positive well nourished and well developed General Appearance ED: well developed and NAD HEENT HEENT Narrative: Mild dry mucosal membranes normocephalic and atraumatic Eyes General Eye ED: Yes normal appearance of both eyes Neck full ROM Chest Wall Chest: Negative for tenderness Resp normal respiratory effort and normal air movement Effort and Inspection: symmetric chest movement; Negative for respiratory distress Cardio regular rhythm and no murmurs Rate: tachycardic Peripheral Pulses: pulses 2+ throughout GI normal to inspection, nondistended, normoactive bowel sounds GI Narrative: Minimal tenderness mid abdomen. Negative Vaughn's or McBurney's tenderness. Palpation: Negative for guarding or rebound tenderness present Extremity normal to inspection General Extremety ED: Negative for edema or tenderness General Extremity: Negative for edema Neuro oriented x3, CN's II-XII intact bilaterally and no sensory deficits noted Neuro Narrative: No focal deficits. Sensorium / Orientation: awake and alert Skin no rashes or lesions noted and no wounds MDM MDM MDM Narrative Medical decision making narrative: Interventions / MDM: Differential diagnosis: Syncope, vomiting and diarrhea, dehydration Diagnosis considered but do not suspect: No clinical cholecystitis or appendicitis. Pancreatitis however lipase normal. My EKG interpretation: Sinus rate of 106, no ST or T wave changes QTc 435. Imaging independently reviewed and interpreted by myself: N/A External documents reviewed: N/A Test considered but not ordered:N/A ED course: Patient vomiting throughout the night abdominal cramping. 1 loose stool. Nonbloody. Dry mucosal membranes with tachycardia. Will obtain EKG for syncopal episode. Likely vasovagal with her reported history of vomiting causing symptoms. IV established for fluids will check abdominal labs. Zofran Pepcid given for symptom control. 0711: Creatinine 0.87 BUN 12. Potassium 3.8. Lipase 24. Normal liver enzymes. 0734: White count 14.3. Likely reactive. No urinary symptoms. No cough. Nonsurgical abdomen. 0740: Clinically feeling better. Being p.o. challenge at this time. Plan to send prescriptions antibiotic Pepcid to her pharmacy. She continue oral hydration at home. All questions were answered. Re-evaluation: stable Disposition discussed with patient/family/significant other: Patient and mother Case discussed with consulting clinician: N/A This note was generated with [employer] dictation software. It may contain incorrect words, spelling, and punctuation that were not noted in checking the note before signing. Lab Data Attestation: I reviewed the patient's lab results. Labs: Laboratory Results - last 24 hr 08/08/24 06:44 WBC 14.3 H RBC 4.72 Hgb 14.2 Hct 41.1 MCV 87.1 MCH 30.1 MCHC 34.5 RDW Std Deviation 39.2 RDW Coeff of Araceli 12.4 Plt Count 240 MPV 9.3 Immature Gran % (Auto) 0.700 Neut % (Auto) 90.8 H Lymph % (Auto) 2.1 L Hand % (Auto) 5.8 Eos % (Auto) 0.4 Baso % (Auto) 0.2 Absolute Neuts (auto) 13.0 H Absolute Lymphs (auto) 0.30 L Nucleated RBC % 0 Sodium 138 Potassium 3.8 Chloride 108 H Carbon Dioxide 24.0 Anion Gap 6 BUN 12 Creatinine 0.87 Estim Creat Clear Calc 111.54 Est GFR (MDRD) Af Amer 106 Est GFR (MDRD) Non-Af 87 BUN/Creatinine Ratio 13.7 Glucose 127 H Calcium 8.9 Total Bilirubin 0.90 AST 12 L ALT 14 Alkaline Phosphatase 69 Total Protein 6.9 Albumin 4.1 Globulin 2.8 Albumin/Globulin Ratio 1.5 Lipase 24 Serum , Qual NEGATIVE Discharge Plan Triage Chief Complaint: Nausea/Vomiting/Diarrhea ED Provider: Simone Pandey Dx/Rx/DC Orders Clinical Impression: Abdominal pain, vomiting, and diarrhea, Dehydration, Syncope Instructions: Dehydration, ED Diet Vomiting Diarrhea, ED Fainting, Vagal Reaction, ED Gastroenteritis, Viral (Adult) Prescriptions: New famotidine 20 mg tablet 20 mg PO BID Qty: 20 0RF ondansetron 4 mg tablet,disintegrating 4 mg PO Q8H PRN PRN (Reason: Nausea) Qty: 10 0RF No Action albuterol sulfate 90 mcg/actuation HFA aerosol inhaler 90 mcg inhalation Q4H PRN lisdexamfetamine [Vyvanse] 20 mg capsule 20 mg PO DAILY metoprolol succinate 25 mg tablet extended release 24 hr 25 mg PO QPM Primary Care Provider: Miranda Redmond Referrals: iMranda Redmond MD [Primary Care Provider] - Activity Restrictions/Additional Instructions: EKG normal. Your labs are stable. Clinically had some dehydration. You are given IV fluids. Continue oral fluids for hydration. Take medications as prescribed. Follow-up with your doctor. Symptoms recur or worsens, return to the ED for reevaluation. Print Language: Wolof
[2024-08-08 07:08] LABS: ALB/GLOB Ratio 1.5 RATIO (0.9-2.4); AST(SGOT) 12 U/L (15-37); Alanine Aminotransfer ALT/SGPT 14 U/L (13-56); Albumin, Serum 4.1 g/dL (3.2-5.0); Alkaline Phosphatase 69 U/L (45-117); Anion Gap 6 (5-15); BUN 12 mg/dL (7-18); BUN/Creat Ratio 13.7 RATIO (10-20); Calcium,Total 8.9 mg/dL (8.5-10.1); Chloride 108 mmol/L (98-107); Creatinine, Serum 0.87 mg/dL (0.55-1.02); EST Glomerular Filtration Rate 87 mL/min (>60); Est Glom Filt Rate - Afr Amer 106 mL/min (>60); Estimated Creatinine Clearance 111.54 ml/min; Globulin 2.8 g/dL (2.2-4.2); Glucose 127 mg/dL (74-106); Lipase 24 U/L (13-75); Potassium 3.8 mmol/L (3.5-5.1); Protein, Total 6.9 g/dL (6.4-8.2); Sodium Level 138 mmol/L (136-145)
[2024-08-08 07:42] LABS: Internal QC Validated? YES +Cl - CLEAR BKGD; Pregnancy, Serum, hCG Quali. NEGATIVE Negative
[2024-08-08 07:50] VITALS: BP 106/72; PULSE 73; RESP 15; TEMP 36.4; O2SAT 99
== END 2024-08-08 07:51 | disposition home or self-care (01) ==
LOC: ED 07:03
PROVIDERS: Emergency Provider Emergency Medicine; PCP Pediatrics; Visit Provider Emergency Medicine
DX: R11.2 Nausea with vomiting, unspecified (principal); R19.7 Diarrhea, unspecified; R55 Syncope and collapse; E86.0 Dehydration; R10.9 Unspecified abdominal pain
CPT/HCPCS: 80053; 83690; 84703; 85025; 93005; 96361; 96374; 96375; 99284; A4216; J2405